=== PATIENT | male | born 1975 | race Hispanic/Latino ===

== ENCOUNTER 2024-04-05 16:06 | Emergency (ER) | payer OTHER ==
[~2024-04-05] VITALS: Ht 170.2 cm; Wt 90.7 kg
[~2024-04-05 16:06] MED LIST: ADVAIR 500/501 EA; ATROVENT30 ML
[2024-04-05 16:13] VITALS: TEMP 98.8
[2024-04-05 16:36] LABS: BASOPHILS % 0.6 % (0.0-1.0); EOSINOPHILS # (AUTO) 0.2 (0.0-0.4); EOSINOPHILS % 2.8 % (0.0-6.0); HEMATOCRIT 46.9 % (38.2-49.6); HEMOGLOBIN 15.1 g/dL (14.0-18.0); LYMPHOCYTES # (AUTO) 2.5 (1.0-3.2); LYMPHOCYTES % 36.9 % (18.0-39.1); MEAN CORPUSCULAR HEMOGLOBIN 31.9 pg (28-32); MEAN CORPUSCULAR HGB CONC 32.2 g/dL (31-35); MEAN CORPUSCULAR VOLUME 98.9 fL (81-99); MONOCYTES # (AUTO) 0.5 (0.2-0.8); MONOCYTES % 7.3 % (4.4-11.3); NEUTROPHILS # (AUTO) 3.5 (2.1-6.9); NEUTROPHILS % 51.7 % (38.7-80.0); PLATELET COUNT 249 x10e3/uL (140-360); RED BLOOD COUNT 4.74 x10e6/uL (4.3-5.7); RED CELL DISTRIBUTION WIDTH 11.9 % (11.7-14.4); WHITE BLOOD COUNT 6.83 x10e3/uL (4.8-10.8)
[2024-04-05 16:40] VITALS: PULSE 75; RESP 22
[2024-04-05] MEDS: ALBUTEROL/IPRATROPIUM 3 ML NEB NEB ONE (16:40)
[2024-04-05 16:53] LABS: INR 0.87; PROTHROMBIN TIME 12.4 seconds (11.9-14.5)
[2024-04-05] MEDS: METHYLPREDNISOLONE SOD SUCC 125 MG/2ML VIAL IV STA (17:00)
[2024-04-05 17:04] LABS: ALBUMIN 3.8 g/dL (3.5-5.0); ANION GAP 16.4 mmol/L (8-16); BILIRUBIN,TOTAL 0.2 mg/dL (0.2-1.2); CREATININE, SERUM 0.95 mg/dL (0.72-1.25); MAGNESIUM 2.1 MG/DL (1.3-2.1); TOTAL PROTEIN 7.7 g/dL (6.5-8.1)
[2024-04-05 17:09] LABS: POTASSIUM 3.4 mmol/L (3.5-5.1); TROPONIN I 0.009 ng/mL (0-0.300)
[2024-04-05 17:45] VITALS: PULSE 68; RESP 14; O2SAT 97
[2024-04-05 17:55] LABS: CORONAVIRUS COVID-19 AG NEGATIVE (NEGATIVE); INFLUENZA A AG NEGATIVE (NEGATIVE); INFLUENZA B AG NEGATIVE (NEGATIVE)
[2024-04-05] MEDS ORDERED: AZITHROMYCIN250 MG PO (18:12)
[2024-04-05] MEDS ORDERED: PREDNISONE20 MG PO (18:12)
== END 2024-04-05 18:25 | disposition home or self-care (01) ==
LOC: ER 16:23
DX: R06.02 Shortness of breath (principal); J44.1 Chronic obstructive pulmonary disease with (acute) exacerbation; J40 Bronchitis, not specified as acute or chronic; R05.9 Cough, unspecified; I50.9 Heart failure, unspecified; Z11.52 Encounter for screening for COVID-19
CPT/HCPCS: 36415; 71045; 80053; 82550; 83735; 83880; 84484; 85025; 85610; 85730; 87040; 87428; 93005; 99284; J2919